=== PATIENT | female | born 1945 | race Caucasian/White ===

== ENCOUNTER 2016-04-06 10:43 | Outpatient (CLI) | payer MEDICARE ==
[~2016-04-06] VITALS: Ht 162.6 cm; Wt 85.9 kg
--- NOTE | ~2016-04-06 | HEMODYNAMI ---
PATIENT:REGGIE MAHMOOD MEDICAL RECORD: [id number] : 47 LOCATION:[facility] ADMISSION DATE: 04/06/16 Generatedon:04/06/201614:05 Patient name: REGGIE MAHMOOD Patient #: [id number] : 1945 Date of study: 04/06/2016 Page: Of Hemodynamic Procedure Report Patient Data Patient Demographics Procedure consent was obtained First Name: REGGIE Gender: Female Last Name: TIMOTEO : 1945 Middle Initial: A Age: 70 year(s) Patient #: [id number] Race: SSN: [id number] Additional ID: [id number] Contact details [address]: [address] [place] [address] State: [place] City: [place] Zip code: [address] Admission Admission Data Admission Date: 04/06/2016 Admission Time: 10:43 Arrival Date: 04/06/2016 Arrival Time: 13:00 Admit Source: Other Insurance Payor: Private health insurance Height (in.): 64 BSA: 1.94 (m2) Height (cm.): 162.56 BMI: 33.47 (kg/m2) Weight (lbs.): 195 Weight (kg.): 88.45 Lab Results Lab Result Date: 04/06/2016 Lab Result Time: 0:00 Biochemistry Name Units Result Min Max BUN mg/dl 43 --(----)-* 7 18 Creatinine mg/dl 1.7 --(----)-* 0.6 1.3 CBC Name Units Result Min Max Hemoglobin g/dl 9.3 *-(----)-- 13.5 17.5 Procedure Procedure Types Cath Procedure Diagnostic Procedure [facility] ED w/Coronaries PCI Procedure Coronary Stent Initial Procedure Description Procedure Date Procedure Date: 04/06/2016 Procedure Start Time: 13:24 Procedure End Time: 14:02 Procedure Staff Name Function Miguel Roa MD Performing Physician Bill Perdomo RT Scrub Evie Ni RN Nurse Donny Hargrove RT Animal Control Licensing Worker Landy Loza RT Monitor Procedure Data Cath Procedure Fluoroscopy Diagnostic fluoroscopy Total fluoroscopy Time: time: 13.3 min 13.3 min Diagnostic fluoroscopy Total fluoroscopy dose: dose: 2842 mGy 2842 mGy Contrast Material Contrast Material Type Amount (ml) Isovue 370 174 Entry Location Entry Primary Successful Side Size Upsize Upsize Entry Closure Villarreal ccessful Closure Location (Fr) 1 (Fr) 2 (Fr) Remarks Device Remarks Radial Right 6 Fr Mechanical artery Short Compression Estimated blood loss: 5 ml Diagnostic catheters Device Type Used For End Catheter Placement TerumIntegrated Medical Management Optitorque 5Fr Multi-vessel Rosamond 4.5 catheter Angiography Procedure Complications No complications Procedure Medications Medication Administration Route Dosage Oxygen NC 2 l/min Heparin Flush Bag added to field 2 bags (1000units/500ml NS) Lidocaine 2% added to field 20 Benadryl I.V. 50 mg Radial Cocktail added to field 1 syringe (Verapomil 2mg/Nitro 400mcg/Heparin 1500units) Versed I.V. 1 mg Fentanyl I.V. 50 mcg Versed I.V. 0.5 mg Fentanyl I.V. 25 mcg Versed I.V. 0.5 mg Fentanyl I.V. 25 mcg Radial Cocktail I.A. 1 syringe (Verapomil 2mg/Nitro 400mcg/Heparin 1500units) Heparin Bolus I.V. 4000 units Versed I.V. 1 mg Zofran I.V. 4 mg Hemodynamics Rest BSA: 1.94 (m2) HGB: 9.3 (g/dl) O2 Consumption: Estimated: 193.78 (ml/min) O2 Con sumption indexed: Estimated:99.89 (ml/min/m) Heart Rate: 90 (bpm) Pressure Samples Time Site Value (mmHg) Purpose Heart Use Rate(bpm) 13:29 LV 104/5,15 Snapshot 108 13:29 AO 88/52(69) Pullback 98 Gradients Valve Time Site Site 2 Mean SEP/DFP Peak To Heart Use 1 (mmHg) (sec/min) Peak Rate (mmHg) (bpm) Aortic 13:29 LV AO 3 14 98 88/52(69) Calculations Valve P-P Mean Valve Index Valve Source Name Gradient Area Flow (cm2) Aortic 3 3 Snapshots Pre Cath Intra NCS Post Cath Vital Signs Time Heart Resp SPO2 NIBP (mmHg) Rhythm Pain Sedation Rate (ipm) (%) Status Level (bpm) 13:08:52 92 20 98 123/71(101) NSR 0 (11) 10(A) , No pain 13:13:06 90 20 98 133/75(103) NSR 0 (11) 10(A) , No pain 13:17:20 91 17 98 122/69(91) NSR 0 (11) 10(A) , No pain 13:21:32 93 19 97 119/76(95) NSR 0 (11) 10(A) , No pain 13:25:44 94 18 95 128/77(102) NSR 0 (11) 10(A) , No pain 13:29:51 93 18 97 97/54(73) NSR 0 (11) 9(A) , No pain 13:33:57 93 18 95 113/66(91) NSR 0 (11) 9(A) , No pain 13:38:07 93 20 96 92/62(78) NSR 0 (11) 9(A) , No pain 13:42:09 95 17 97 110/68(91) NSR 0 (11) 9(A) , No pain 13:46:19 82 16 95 110/62(95) NSR 0 (11) 9(A) , No pain 13:50:28 95 18 96 118/69(93) NSR 0 (11) 10(A) , No pain 13:54:36 90 19 95 99/66(81) NSR 0 (11) 10(A) , No pain 13:58:42 87 19 96 115/70(97) NSR 0 (11) 10(A) , No pain 14:01:24 88 20 97 118/70(99) NSR 0 (11) 10(A) , No pain Medications Time Medication Route Dose Verified Delivered Reason Note s Effectiveness by by 13:03:54 Oxygen NC 2 l/min Miguel Case Per physician St. Ney Ni RN, MD 13:04:01 Heparin Flush added 2 bags Miguel Rivera used for Bag to [facility] procedure (1000units/500ml field MD GUEVARA NS) 13:04:08 Lidocaine 2% added 20ml Miguel Rivera used for to vial [facility] procedure field MD GUEVARA 13:04:16 Benadryl I.V. 50 mg Miguel Evie Per physician [facility]. Ney Ni RN, MD 13:12:02 Radial Cocktail added 1 Miguel Rivera used for (Verapomil to syringe Crispin Crispin procedure 2mg/Nitro field MD GUEVARA 400mcg/Heparin 1500units) 13:18:55 Versed I.V. 1 mg Miguel Evie for sedation St. Ney Ni RN, MD 13:19:01 Fentanyl I.V. 50 mcg Miguel Evie for sedation St. Ney Ni RN, MD 13:22:39 Versed I.V. 0.5 mg Miguel Evie for sedation St. Ney Ni RN, MD 13:22:42 Fentanyl I.V. 25 mcg Miguel Evie for sedation St. Ney Ni RN, MD 13:25:15 Versed I.V. 0.5 mg Miguel Evie for sedation St. Ney Ni RN, MD 13:25:19 Fentanyl I.V. 25 mcg Miguel Evie for sedation St. Ney Ni RN, MD 13:27:29 Radial Cocktail I.A. 1 Miguel Rivera for (Verapomil syringe Crispin Crispin vasodilation 2mg/Linda GUEVARA MD 400mcg/Heparin 1500units) 13:36:09 Heparin Bolus I.V. 4000 Miguel Evie for dose units St. Ney Ni RN anticoagulation verified MD with dr loepz 13:55:48 Versed I.V. 1 mg Miguel Evie for sedation St. Ney Ni RN, MD 13:57:22 Zofran I.V. 4 mg Miguel Evie Per physician St. Ney Ni RN, MD Procedure Log Time Note 12:40:47 Donny Hargrove RT(R) sent for patient. Start room use. 12:53:19 Informed consent obtained and on chart 12:53:25 Diagnostic Cath Status : Elective 12:56:10 Admit Source: Other 12:56:14 Patient Height : 162.56 cm 12:56:26 Patient Weight : 88.45 kg 12:56:32 Insurance Payor : Private health insurance 12:58:34 Arrival Date: 04/06/2016 1:00:00 PM 13:01:26 Lab Result : Hemoglobin 9.3 g/dl 13:01: Lab Result : BUN 43 mg/dl 13:: Lab Result : Creatinine 1.7 mg/dl 13::58 Time tracking: Regular hours 13:02:02 Plan of Care:Hemodynamics will remain stable., Cardiac rhythm will remain stable., Comfort level will be maintained., Respiratory function will remain adequate., Patient/ family verbilizes understanding of procedure., Procedure tolerated without complication., Recovers from procedure without complications.. 13:02:07 Patient received from Outpatients to [facility] 1 Alert and oriented. Tansferred to table in Supine position. 13:02:08 Warm blankets applied, and betty hugger turned on for patient comfort. 13:02:09 Correct patient and procedure confirmed by team. 13:02:11 ECG and BP/O2 sat monitors applied to patient. 13:03:54 Oxygen 2 l/min NC was given by Evie Ni RN; Per physician; 13:04:01 Heparin Flush Bag (1000units/500ml NS) 2 bags added to field was given by Miguel Roa MD; used for procedure; 13:04:08 Lidocaine 2% 20ml vial added to field was given by Miguel Roa MD; used for procedure; 13:04:16 Benadryl 50 mg I.V. was given by Evie Ni RN; Per physician; 13:07:31 Vital chart was started 13:12:02 Radial Cocktail (Verapomil 2mg/Nitro 400mcg/Heparin 1500units) 1 syringe added to field was given by Miguel Roa MD; used for procedure; 13:13:44 Baseline sample Acquired. 13:13:52 Rhythm: sinus rhythm 13:13:55 Full Disclosure recording started 13:17:06 H&P Date Dictated: 04/06/2016 New H&P dictated by physician.. 13:17:08 Pre-procedure instructions explained to patient. 13:17:09 Pre-op teaching completed and patient verbalized understanding. 13:17:18 Family in waiting room. 13:17:20 Patient NPO since Midnight. 13:17:42 Is the patient allergic to Iodine/contrast media? No. 13:17:50 Was the patient premedicated? No 13:17:51 Is patient on blood thinner?Yes 13:17:54 ACC The patient was administered the following blood thiners within the last 24 hours: ACCPlavix 13:17:56 Patient diabetic? Yes. 13:17:59 Previous problem with sedation/anesthesia? No ? 13:18:01 Snore? Yes 13:18:02 Sleep apnea? No 13:18:03 Deviated septum? No 13:18:03 Opens mouth fully? Yes 13:18:04 Sticks out tongue? Yes 13:18:06 Airway obstruction? No ? 13:18:08 Dentures? No ? 13:18:12 Pre procedure: right dorsailis pedis pulse 1+ Palpable, but thready & weak; easily obliterated 13:18:15 Patient pain scale 0/10 ?. 13:18:26 IV patent on arrival in left forearm with 0.9% NaCl at [facility]. 13:18:29 Lab results completed and on chart. 13:18:37 Right Radial & Right Groin area was prepped with chlora-prep and draped in sterile fashion 13:18:38 Alarms reviewed by R. N. 13:18:39 Sharps counted by scrub and verified by R.N. 13:18:39 Physician arrived 13:18:40 --------ALL STOP TIME OUT------ 13:18:40 Final Timeout: patient, procedure, and site verified with staff and physician. All members of the team are in agreement. 13:18:42 Right Radial & Right Groin site verified by team. 13:18:46 Physical assessment completed. ASA score P 2 - A patient with mild systemic disease as per Miguel Roa MD. 13:18:49 Sedation plan: IV Moderate Sedation Versed, Fentanyl 13:18:55 Versed 1 mg I.V. was given by Evie Ni RN; for sedation; 13:19:01 Fentanyl 50 mcg I.V. was given by Evie Ni RN; for sedation; 13:19:01 Use device set Radial Dx 13:19:02 Acist Syringe opened to sterile field. 13:19:03 Cardinal Cath Pack opened to sterile field. 13:19:03 Bag Decanter opened to sterile field. 13:19:04 Terumo 6Fr Slender Glidesheath opened to sterile field. 13:19:04 St Vinny 260cm J .035 wire opened to sterile field. 13:19:05 Acist Hand Control opened to sterile field. 13:19:05 Acist Manifold opened to sterile field. 13:19:06 IV Extension Set opened to sterile field. 13:22:12 Zero performed for pressure channel P1 13:22:39 Versed 0.5 mg I.V. was given by Evie Ni RN; for sedation; 13::42 Fentanyl 25 mcg I.V. was given by Evie Ni RN; for sedation; 13:24:50 Procedure started. 13:24:56 Local anesthetic to right radial artery with Lidocaine 2% by Miguel Roa MD.INITIAL ACCESS ONLY 13:25:04 A 6 Fr Short sheath was inserted into the Right Radial artery 13:25:15 Versed 0.5 mg I.V. was given by Evie Ni RN; for sedation; 13::19 Fentanyl 25 mcg I.V. was given by Evie Ni RN; for sedation; 13:27:29 Radial Cocktail (Verapomil 2mg/Nitro 400mcg/Heparin 1500units) 1 syringe I.A. was given by Miguel Roa MD; for vasodilation; 13:27:36 A GEOLID Optitorque 5Fr Rosamond 4.5 catheter was advanced over the wire and used for Multi-vessel Angiography. 13:29:21 LV hemodynamics recorded. 13:29:22 LV gram done using KINCAID 13:29:25 Injector settings: Ml/sec: 5, Volume: 15, 13:29:36 EF : 25 % 13:30:13 LCA angiography performed. 13:30:16 Injector settings: Ml/sec: 3, Volume: 6, 13:31:52 RCA angiography performed. 13:31:55 Injector settings: Ml/sec: 3, Volume: 6, 13:33:41 Catheter removed. 13:33:58 Proceeding to intervention. 13:34:52 Cordis 6FR XBLAD 3.5 guide catheter opened to sterile field. 13:35:31 Marcos Aiken 300cm 0.014 guide wire opened to sterile field. 13:35:41 Merit BasixCompak Inflation Kit opened to sterile field. 13:36:04 6 Fr xblad 3.5 guide catheter was inserted over the wire 13:36:09 Heparin Bolus 4000 units I.V. was given by Evie Ni RN; for anticoagulation; dose verified with dr lopez 13:40:24 Inflation number: 1 A Igo Sci Seneca 2.5 X 12 balloon was prepped and advanced across the Prox CX, then inflated to 10 MICHAEL for 0:30 (min:sec). 13:41:11 Inflation number: 2 The Igo Sci Seneca 2.5 X 12 balloon was reinflated across the Prox CX, to 12 MICHAEL for 0:30 (min:sec). 13:42:01 Balloon removed over the wire. 13:45:44 Inflation Number: 3 A Medtronic Integrity 2.5 x 14 stent was prepped and advanced across the Prox CX. The stent was deployed at 14 MICHAEL for 0:45 (min:sec). 13:50:00 Stent catheter was removed intact over wire. 13:52:01 Inflation Number: 4 A Medtronic Integrity 3.0 X 12 stent was prepped and advanced across the Prox CX. The stent was deployed at 14 MICHAEL for 0:30 (min:sec). 13:53:12 Wire removed. 13:53:13 Marcos Whisper J 300cm 0.014 guide wire opened to sterile field. 13:54:52 Stent catheter was removed intact over wire. 13:55:48 Versed 1 mg I.V. was given by Evie Ni RN; for sedation; 13:57:22 Zofran 4 mg I.V. was given by Evie Ni RN; Per physician; 13:57:55 whisper wire advanced. 13:57:56 Wire advanced across lesion. 13:58:19 The Igo Sci Seneca 2.0 X 15 balloon was advanced and then removed because of failure to cross lesion 13:58:25 Balloon removed over the wire. 13:58:25 Wire removed. 13:58:26 Guide catheter removed. 13:59:24 Terumo TR Band Standard opened to sterile field. 13:59:46 Sheath removed intact; hemostasis achieved with Mechanical Compression to the Right Radial artery. 13:59:49 Procedure ended.(Physican Out) 14:00:30 Fluoroscopy time 13.30 minutes. 14:00:37 Fluoroscopy dose: 2842 mGy 14:00:37 Flurop Dose total: 2842 14:01:00 Contrast amount:Isovue 370 174ml. 14:01:01 Sharps counted by scrub and verified by R.N. 14:01:05 TR band inflated with 10cc of air. 14:01:07 Insertion/operative site no bleeding no hematoma. 14:01:14 Post right radial artery:stable 14:01:15 Post Procedure Pulses reassessed and unchanged 14:01:18 Post procedure rhythm: unchanged. 14:01:21 Estimated blood loss: 5 ml 14::22 Post procedure instruction explained to patient.Patient verbalizes understanding. 14::22 Patient needs reinforcement of post procedure teaching. 14::42 Procedure type changed to Cath procedure, Diagnostic procedure, LHC, LHC w/Coronaries, PCI procedure, Coronary Stent Initial 14::42 Procedure and supply charges have been captured, reviewed, submitted and are correct. 14:01:47 Procedure Complication : No complications 14:02:00 Vital chart was stopped 14:02:00 See physician's report for complete and final results. 14:02:34 Report given to Outpatients. 14:02:37 Patient transfered to Outpatients with Stretcher. 14:02:39 Procedure ended. 14:02:39 Full Disclosure recording stopped 14:03:00 ACC-PCI Only Patient was given prescriptions, or instructed by Miguel Roa MD to start/continue the following medications upon discharge: Plavix 14:03:02 End room use (Document Last) Intervention Summary Intervention Notes Time ActionType Lesion and Equipment Action# Pressure Duration Attributes Used 13:40:24 Inflate Prox CX Igo 1 10 00:30 balloon Sci Seneca 2.5 X 12 balloon 13:41:11 Reinflate Prox CX Igo 2 12 00:30 balloon Sci Seneca 2.5 X 12 balloon 13:45:44 Place stent Prox CX Medtronic 3 14 00:45 Integrity 2.5 x 14 stent 13:52:01 Place stent Prox CX Medtronic 4 14 00:30 Integrity 3.0 X 12 stent 13:58:19 Discard Igo Balloon Sci Seneca 2.0 X 15 balloon Device Usage Item Name Manufacture Quantity Catalog Number Hospital Part Current Mini mal Lot# / Charge Number Stock Stock Serial# Code Acist Acist 1 79321 567623 702998 650474 20 Pertino [facility] Cardinal Cardinal [address] 534855 33148 574748 5 Cath Pack Health Bag Microtek 1 2002S 949372 80637 932070 5 [employer]. Terumo 6Fr Terumo 1 [id number] 683340 524902 568713 [address] St Vinny 1 939489 550863 424244 216623 30 260cm J .035 wire Acist Hand Acist 1 28560 419077 293081 770880 5 Control Medical Systems Inc Acist Acist 1 21652 810808 302851 117571 5 Manifold Medical Systems Inc IV Hospira 1 31527-20 377416 72536 400057 5 Extension Set Terumo Terumo 1 40-3177 459292 487892 859124 5 Optitorque 5Fr Rosamond 4.5 catheter Cordis 6FR Cardinal 1 [id number] 497565 102385 908717 10 XBLAD 3.5 Health guide catheter Marcos Marcos 1 [id number] 720850 216360 548444 1 Aiken Vascular 300cm 0.014 guide wire Merit Merit 1 [id number] 553672 500251 700020 15 The [employer] Medical Inflation Kit Igo Sci Igo 1 [id number] 188963 124774 310252 1 [id number] Seneca Scientific 2.5 X 12 balloon Medtronic Medtronic 1 [id number] 002716 876573 0 [id number] Integrity 2.5 x 14 stent Medtronic Medtronic 1 [id number] 360227 071347 151582 6 [id number] Integrity 3.0 X 12 stent Marcos Marcos 1 [id number] 143886 238513 360350 5 Whisper J Vascular 300cm 0.014 guide wire Igo Sci Igo 1 [id number] 104380 214436 498596 1 [id number] Seneca Scientific 2.0 X 15 balloon Terumo TR Terumo 1 [id number] 518384 939058 273558 40 Band Standard Signature Audit Bazine Stage Time Signature Unsigned Intra-Procedure 04/06/2016 Landy Loza 2:05:01 PM RT(R) Signatures Monitor : Landy Loza RT Signature : Date : Time : [place] [address] [place] [address]
[~2016-04-06 10:43] MED LIST: ESTRACE2 MG PO; GLUCOPHAGE1000 MG PO; GLUCOTROL XL 5 M5 MG PO; HYDROCODONE-APA1 TAB PO; INVOKANA300 MG PO; LEVOXYL125 MCG; LOVASTATIN40 MG; PHENERGAN25 M1 PO; PLAVIX75 MG PO; PROMETRIUM100 MG PO
[2016-04-06 11:51] LABS: EOSINOPHILS 5.2 % (0-7); HEMATOCRIT 31.7 % (36.0-48.0); HEMOGLOBIN 9.3 g/dL (12-16); IMMATURE GRANULOCYTES 0.2 % (0-5); LYMPHOCYTES 23.5 % (15-50); MCH 23.1 pg (26.0-34.0); MCHC 29.3 g/dL (31.0-37.0); MCV 78.7 fL (80.0-100.0); MEAN PLATELET VOLUME 9.2 fL (7.4-10.4); MONOCYTES 8.2 % (2-11); NEUTROPHILS 61.9 % (40-80); RBC 4.03 10x6/uL (4.00-5.40); RDW 18.7 % (11.5-14.5)
[2016-04-06 11:52] LABS: PLATELET COUNT 319 10x3/uL (130-400)
[2016-04-06 12:00] LABS: ANION GAP 11.8 mmol/L (8-16); CALCIUM 9.4 mg/dL (8.5-10.1); CARBON DIOXIDE 32.5 mmol/L (21.0-32.0); CREATININE - SERUM 1.7 mg/dL (0.6-1.3); POTASSIUM - SERUM 3.3 mmol/L (3.5-5.1)
[2016-04-06] MEDS ORDERED: GLUCOTROL XL 1010 MG PO (12:00)
[2016-04-06] MEDS ORDERED: HUMULIN 70100 UNIT/1 SC ×2 (12:02→12:03)
[2016-04-06] MEDS ORDERED: ULTRAM50 MG PO (12:04)
[2016-04-06] MEDS ORDERED: LASIX40 MG PO (12:04)
[2016-04-06] MEDS ORDERED: XALATAN 0.0052.5 ML LEFT EYE (12:05)
[2016-04-06] MEDS ORDERED: CO Q-1030 MG (12:07)
[2016-04-06] MEDS ORDERED: TIMOPTIC 0.5 % O5 ML LEFT EYE (12:07)
[2016-04-06] MEDS ORDERED: FISH OIL 1,2001 CAP PO (12:08)
[2016-04-06] MEDS ORDERED: MULTIPLE VITAMI1 TA1 PO (12:09)
[2016-04-06] MEDS ORDERED: VITAMIN D5000 UNIT PO (12:09)
[2016-04-06] MEDS ORDERED: DHEA25 M1 PO (12:09)
[2016-04-06] MEDS ORDERED: BAYER CHEWABLE81 MG PO (12:10)
[2016-04-06 12:22] VITALS: BP 115/61; Ht 162.6 cm; Wt 85.9 kg
--- NOTE | 2016-04-06 15:11 | NUR ---
1425 SLEEPING, LYING FLAT. NC 2L WHILE SLEEPING. NSR RATE 82 WNO C/O CHEST PAIN. PULSES PALP X 4. R WRIST TR BAND C/D/I WITH NO HEMATOMA OR BLEEDING. 1455 R WRIST REMAINS C/D/I WITH NO HEMATOMA OR BLEEDING. VITALS ALL WNL. 1512 CALLED REPORT TO GRISEL ALFARO RN. TRANSFERRED VIA STRETCHER TO ROOM 2513. R WRIST REMAINS C/D/I WITH NO HEMATOMA OR BLEEDING.
--- NOTE | 2016-04-06 15:25 | NUR ---
RECEIVED FROM DIRECTOR OF PHYSICAL SECURITY RECOVERY POST ANGIOGRAM WITH STENT. VITAL SIGNS STABLE. RIGHT RADIAL T-BAND IN PLACE. NO SWELLING OR BLEEDING FROM RIGHT RADIAL NOTED. COLA GIVEN PER REQUEST. REPOSITIONED FOR C/O BACK PAIN.
--- NOTE | 2016-04-06 16:00 | NUR ---
UP TO BATHROOM, GAIT STEADY. VOIDED LARGE AMOUNT. BACK TO BED. VITAL SIGNS STABLE, SEE POST PROCEDURE VITAL SIGN SHEET.
--- NOTE | 2016-04-06 17:00 | NUR ---
2ML OF AIR RELEASED FROM T-BAND. NO BLEEDING OR HEMATOMA NOTED AT RIGHT RADIAL SITE.
--- NOTE | 2016-04-06 17:30 | NUR ---
HAVE SLOWLY RELEASED ALL AIR FROM T-BAND. T-BAND REMOVED AND BANDAID APPLIED, NO BLEEDING OR HEMATOMA NOTED.
--- NOTE | 2016-04-06 18:00 | NUR ---
SITTING IN WHEELCHAIR TO RELIEVE BACK DISCOMFORT. DISCHARGE INSTRUCTIONS GIVEN, VOICED UNDERSTANDING.
--- NOTE | 2016-04-06 18:10 | NUR ---
DISCHARGED HOME VIA .
--- NOTE | 2016-04-12 14:16 | OP ---
PATIENT NAME: REGGIE MAHMOOD MEDICAL RECORD: [id number] :47 LOCATION:D.CAT ADMISSION DATE: SURGEON: TEAGAN LIVINGSTON MD DATE OF OPERATION: 04/06/2016 PROCEDURE: Left heart catheterization, selective coronary angiography, right radial approach. CATHETERS: Madison catheter. The procedure was well tolerated. Proceeded directly to PTCA stenting of the circumflex, OM. FINDINGS: Left ventriculography in 30-degree KINCAID view, severe global hypokinesis, reduced EF 20% to 25%. CORONARY ANATOMY: LEFT MAIN: Left main is free of disease. LAD: Free of disease in the diagonal system. This gives collaterals to the total occluded right. CIRCUMFLEX: Has a proximal stenosis of 80% distally, OM2 has a more diffuse 80% stenosis. RIGHT CORONARY ARTERY: Totally occluded and fills via left to right collaterals. PLAN: Intervention of circumflex, OM momentarily. DESCRIPTION OF INTERVENTION: Using an indwelling sheath, an XB LAD guide catheter provided excellent guide catheter support followed by a 300 cm [place] XT wire was placed across the circumflex and OM2, down this portion of OM2. Predeployment balloon used was a 2.5 x 14 mm Cowley balloon. Next, stents were deployed in the following fashion, distally, a 2.5 x 18 mm Integrity nondrug eluting stent was inflated up to 12 atmospheres. More proximally, a 3.0 x 12 mm Integrity nondrug eluting stent was inflated up to 14 atmospheres. Attempts were made to wire the small OM1, it was diffusely diseased; however, this was able to be wired. IMPRESSION: Successful percutaneous transluminal coronary angioplasty stenting to OM2 as well as a true circumflex from 90% circumflex lesion, no significant residual and diffuse 80% OM lesion, no residual, nice pumping of the vessel distally. Sheath was closed with TR band. The patient was previously on Plavix. TRANSINT:[id number] Voice Confirmation ID: [id number] DOCUMENT ID: [id number] OPERATIVE REPORT [id number] REGGIE MAHMOOD GREGORY A MD at 1416 CC: [id number] DICTATION DATE: 04/06/16 1405 COMMIS CHEF: 04/06/16 1423 DEP CLI 04/06/16 [facility] [address] [facility] [place] [address]
--- NOTE | 2016-04-12 14:16 | HP ---
PATIENT: REGGIE MAHMOOD MEDICAL RECORD: [id number] ACCOUNT: [id number] LOCATION:SRINIVASA : 47 ADMISSION DATE: 04/06/16 HISTORY AND PHYSICAL EXAMINATION HISTORY OF PRESENT ILLNESS: A 70-year-old female with a history of cardiomyopathy, improved on medical therapy including JOSE inhibitor and diuretic. She has not been assessed for ischemic burden. She is being put forth for diagnostic angiography. PAST MEDICAL HISTORY: 1. History of diabetes mellitus. 2. Hypertension. 3. Hyperlipidemia. 4. Cardiomyopathy, new onset. MEDICATIONS: Typically include atorvastatin 40 every day, glyburide 10 every day, Invokana 300 mg daily, Lasix 20 every day, lisinopril 5 every day. PHYSICAL EXAMINATION: GENERAL: Pleasant female in no acute distress. HEENT: Normocephalic, atraumatic. NECK: No JVD or bruit. HEART: Regular. LUNGS: Moreno clear. ABDOMEN: Soft and nontender. EXTREMITIES: Pulses 2+ with no edema. IMPRESSION: Cardiomyopathy with multiple risk factors. PLAN: For diagnostic angiography to assess any ischemic burden. TRANSINT:[id number] Voice Confirmation ID: [id number] DOCUMENT ID: [id number] TEAGAN LIVINGSTON MD at 1416 CC: [id number] DICTATION DATE: 04/06/16 1319 METAL FABRICATOR: 04/06/16 1336 DEP CLI 04/06/[address] [address]
== END 2016-04-06 18:10 | disposition home or self-care (01) ==
LOC: D.CATH 10:43
PROVIDERS: Internal Medicine Interventional Cardiology
DX: I25.10 Atherosclerotic heart disease of native coronary artery without angina pectoris (principal); I42.9 Cardiomyopathy, unspecified; E11.9 Type 2 diabetes mellitus without complications; I10 Essential (primary) hypertension; E78.5 Hyperlipidemia, unspecified; Z79.84 Long term (current) use of oral hypoglycemic drugs; Z79.899 Other long term (current) drug therapy

== ENCOUNTER 2017-02-19 16:38 | Inpatient (IN) | payer MEDICARE ==
[~2017-02-19] VITALS: Ht 162.6 cm; Wt 102.3 kg
[2017-02-19] VITALS (10 sets, daily range): BP systolic 65–212; BP diastolic 46–120; Ht 162.6 cm; Wt 102.3 kg
[~2017-02-19 16:38] MED LIST changes: +BAYER CHEWABLE81 MG PO; +CO Q-1030 MG; +DHEA25 M1 PO; +FISH OIL 1,2001 CAP PO; +GLUCOTROL XL 1010 MG PO; +HUMULIN 70100 UNIT/1 SC; +LASIX40 MG PO; +MULTIPLE VITAMI1 TA1 PO; +TIMOPTIC 0.5 % O5 ML LEFT EYE; +ULTRAM50 MG PO; +VITAMIN D5000 UNIT PO; +XALATAN 0.0052.5 ML LEFT EYE
--- NOTE | 2017-02-19 17:42 | NUR ---
TRANSFERED FROM ADMISSIONS BY W/C. OREINTED TO ROOM. CALL LIGHT IN REACH. WILL CONT. PLAN OF CARE.
[2017-02-19] MEDS ORDERED: NOVOLIN N100 U/ML SQ ×2 (18:12→18:13)
--- NOTE | 2017-02-19 18:15 | NUR ---
RECIVED TO ROOM 2120 PER . ADMIT ASSESSMENT PER RN.
[2017-02-19 18:21] LABS: BASOPHILS 0.5 % (0-2); EOSINOPHILS 0.6 % (0-7); HEMATOCRIT 35.9 % (36.0-48.0); HEMOGLOBIN 11.4 g/dL (12-16); IMMATURE GRANULOCYTES 0.2 % (0-5); LYMPHOCYTES 15.1 % (15-50); MCH 27.4 pg (26.0-34.0); MCHC 31.8 g/dL (31.0-37.0); MCV 86.3 fL (80.0-100.0); MEAN PLATELET VOLUME 10.8 fL (7.4-10.4); MONOCYTES 6.3 % (2-11); NEUTROPHILS 77.3 % (40-80); PLATELET COUNT 259 10x3/uL (130-400); RBC 4.16 10x6/uL (4.00-5.40); RDW 16.5 % (11.5-14.5); WBC 8.8 10x3/uL (4.8-10.8)
--- NOTE | 2017-02-19 18:22 | NUR ---
SEE CODE BLUE SHEET
--- NOTE | 2017-02-19 18:34 | NUR ---
STOOD UP FOR WEIGHT. DIZZINESS NOTED. WENT INTO V-TACH AND PASSED OUT TO FLOOR. ASSISTED TO BED. CPR STARTED AND ISAAC HORTON CALLED. MOVING TO ICU 2308.
--- NOTE | 2017-02-19 19:30 | NUR ---
REPORT REC'D AND CARE ASSUMED, REC'D PT ON BIPAP @ 60%, PT AWAKE AND ALERT, FOLLOWING COMMANDS, ASKING ABOUT HER CELL PHONE, PT COMPLAINS OF PAIN IN LEFT LEG AND FOOT, RATING 6-8 ON 0-10 PAIN SCALE, RIGHT A/C PIV WITH NS @ 125CC/HR, BARRETT PATENT DRAINING CLEAR YELLOW URINE, CM-SR WITH BBB @ 85, BED IN LOW POSITION, SR UP X 2, CALL LIGHT IN REACH.
--- NOTE | 2017-02-19 19:40 | NUR ---
BP 81/43, NSR ON CM, AMIODARONE BOLUS HELD AND AMIODARONE GTT BEGUN @ 1MG/MIN, VIA RIGHT A/C PIV, PT DRY HEAVING, 4MG ZOFRAN GIVEN SLOW IVP.
--- NOTE | 2017-02-19 19:55 | NUR ---
DR. GABI PATEL
--- NOTE | 2017-02-19 20:05 | NUR ---
DR. ASHLEY NOTIFIED OF DECREASED BP, ORDERS FOR DOBUTAMINE 5MCG/KG/MIN REC'D AND MAY ADD DOPAMINE WELL IF DOBUTAMINE INEFFECTIVE.
--- NOTE | 2017-02-19 20:30 | NUR ---
PIV'S X 3 ATTEMPTED WITHOUT SUCCESS, CONSENT FOR CENTRAL LINE OBTAINED FROM SON.
--- NOTE | 2017-02-19 20:40 | NUR ---
DR. MALIK AT BS, PT POSITIONED FOR CVL PLACEMENT, PT TOLERATED WELL, BP 74/43
[2017-02-19 20:48] LABS: ALBUMIN 3.3 g/dL (3.4-5.0); ALKALINE PHOSPHATASE 97 U/L (46-116); ALT (SGPT) 177 U/L (10-68); BILIRUBIN - TOTAL 0.63 mg/dL (0.2-1.3); CALCIUM 9.1 mg/dL (8.5-10.1); CARBON DIOXIDE 21.1 mmol/L (21.0-32.0); CHLORIDE - SERUM 99 mmol/L (98-107); CKMB 14.4 U/L (0.0-3.6); CREATINE KINASE 237 UL (21-215); CREATININE - SERUM 3.2 mg/dL (0.6-1.3); POTASSIUM - SERUM 5.9 mmol/L (3.5-5.1); PROTEIN - SERUM 6.9 g/dL (6.4-8.2); SODIUM 134 mmol/L (136-145); UREA NITROGEN 137 mg/dL (7-18); eGFR NON AFRICAN AMERICAN 15 mL/min (90-120)
[2017-02-19 20:53] LABS: CALC OSMOLALITY 321 mosm/kg (275-300); GLUCOSE 284 mg/dL (74-106)
[2017-02-19 20:54] LABS: TROPONIN-I 2.408 ng/mL (0.000-0.060)
--- NOTE | 2017-02-19 20:55 | NUR ---
PT REPOSITIONED FOR COMFORT AND DRSG APPLIED TO LTLSCL, PT COMPLAINS OF NAUSEA, HOB ELEVATED, COOL CLOTH TO FOREHEAD.
--- NOTE | 2017-02-19 21:05 | NUR ---
DR. FLORES PAGED REGARDING SERUM POTASSIUM 5.9, ORDERS REC'D FOR 10UNITS REG INSULIN AND D50
--- NOTE | 2017-02-19 21:12 | NUR ---
PT COMPLAINS " I AM GOING TO VOMIT", BIPAP MASK OPENED AND EMESIS BAG PROVIDED, DRY HEAVING NOTED, CM-SB @ 38, PT UNRESPONSIVE, CODE BLUE CALLED, SEE CODE BLUE SHEET.
--- NOTE | 2017-02-19 21:40 | NUR ---
DNR OBTAINED FROM FAMILY.
--- NOTE | 2017-02-19 22:05 | NUR ---
Sharath JOY APN NOTIFIED OF PT'S EXPIRATION
--- NOTE | 2017-02-19 22:08 | NUR ---
DR. ASHLEY NOTIFIED OF PT PASSING.
--- NOTE | 2017-02-19 22:10 | NUR ---
DR. FLORES NOTIFIED OF PT EXPIRATION
--- NOTE | 2017-02-19 22:26 | NUR ---
TRICIA CORONA, SPACE CONTROL AGENT, NOTIFIED OF PT'S EXPIRATION, OKAY REC'D TO RELEASE PT TO THE HOME.
--- NOTE | 2017-02-19 22:26 | NUR ---
TRICIA CORONA, MANUFACTURING TECHNICIAN, NOTIFIED OF PT EXPIRATION.
--- NOTE | 2017-02-19 22:29 | NUR ---
BERT AT [facility] NOTIFIED AND REFERENCE NUMBER OBTAINED.
--- NOTE | 2017-02-19 22:40 | NUR ---
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
--- NOTE | 2017-02-19 23:50 | NUR ---
PT RELEASED TO [facility]
== END 2017-02-19 21:47 | DRG 291 ==
LOC: D.M2 16:38 → D.ICU 17:32
PROVIDERS: ADMIT Family Medicine
PROC: 02HV33Z Insertion of Infusion Device into Superior Vena Cava, Percutaneous Approach (ICD-10-PCS; principal; 2017-02-19)
PROC: 0BH17EZ Insertion of Endotracheal Airway into Trachea, Via Natural or Artificial Opening (ICD-10-PCS; 2017-02-19)
PROC: 5A12012 Performance of Cardiac Output, Single, Manual (ICD-10-PCS; 2017-02-19)
PROC: 5A12012 Performance of Cardiac Output, Single, Manual (ICD-10-PCS; 2017-02-19)
PROC: 5A12012 Performance of Cardiac Output, Single, Manual (ICD-10-PCS; 2017-02-19)
PROC: 5A09357 Assistance with Respiratory Ventilation, Less than 24 Consecutive Hours, Continuous Positive Airway Pressure (ICD-10-PCS; 2017-02-19)
DX: I13.0 Hypertensive heart and chronic kidney disease with heart failure and stage 1 through stage 4 chronic kidney disease, or unspecified chronic kidney disease (principal); I50.23 Acute on chronic systolic (congestive) heart failure; N17.0 Acute kidney failure with tubular necrosis; G93.41 Metabolic encephalopathy; N18.9 Chronic kidney disease, unspecified; E11.22 Type 2 diabetes mellitus with diabetic chronic kidney disease; E11.65 Type 2 diabetes mellitus with hyperglycemia; E11.40 Type 2 diabetes mellitus with diabetic neuropathy, unspecified; E11.621 Type 2 diabetes mellitus with foot ulcer; L97.509 Non-pressure chronic ulcer of other part of unspecified foot with unspecified severity; E87.5 Hyperkalemia; E03.9 Hypothyroidism, unspecified; E78.5 Hyperlipidemia, unspecified; E55.9 Vitamin D deficiency, unspecified; I48.91 Unspecified atrial fibrillation; R06.03 Acute respiratory distress; E11.39 Type 2 diabetes mellitus with other diabetic ophthalmic complication; H40.9 Unspecified glaucoma; E66.9 Obesity, unspecified; Z66 Do not resuscitate; Z68.38 Body mass index [BMI] 38.0-38.9, adult